=== PATIENT | female | born 1965 | race Caucasian/White ===

== ENCOUNTER 2019-12-14 08:34 | Inpatient (IN) ==
--- NOTE | 2019-11-14 14:08 | PAT Medication Instructions ---
Medication Instructions Date of Service November 14, 2019 Home Medications calcium carbonate-vitamin D3 [Calcium 600 + D(3)] 1 cap PO QAM ibuprofen [Advil] 400 mg PO Q6H PRN levothyroxine 112 mcg PO QAM multivitamin 1 tab PO QAM tramadol 50 mg PO TID PRN ASK your surgeon for instructions ibuprofen [Advil] 400 mg PO Q6H PRN DO NOT take the morning of surgery calcium carbonate-vitamin D3 [Calcium 600 + D(3)] 1 cap PO QAM multivitamin 1 tab PO QAM Take morning of surgery With a small sip of water, OTHERWISE NOTHING TO EAT OR DRINK AFTER MIDNIGHT: levothyroxine 112 mcg PO QAM tramadol 50 mg PO TID PRN (okay to take up to 4 hours prior to surgery if needed) Take evening before surgery tramadol 50 mg PO TID PRN (if needed) Other Notes If you have any questions please call us at [phone] or [phone] or [phone] or [phone]
--- NOTE | 2019-11-15 10:36 | Anesthesiology Consultation ---
Date of Service November 15, 2019 Assessment & Plan (1) Encounter for pre-operative examination: Per assessment on 11/14: Travel screen- Lives in [facility]. Works in [place]. Uses PPE, frequent hand washing, + social distancing. No known COVID-19 positive contacts or current COVID-19 related symptoms. Surgeon arranging preop COVID testing. Awaiting results. Chart Review Chart Review: Acceptable Risk for Surgery and Patient seen in Pre Admission Testing Teaching & Discussion Pre-Anesthesia Teaching/Discussion Notes: Instructed NPO after midnight before surgery,except medications with 15 cc of water. Medication instructions provided according to the PAT guidelines. History Surgery Operation Date: 12/14/19 08:40 Proposed Procedures p Left shoulder Tournier Resurfacing - Jordan Calderón DO s vs. Hemiarthroplasty vs. Total Shoulder Arthroplasty - Jordan Calderón DO Height/Weight Height: 5 ft 3 in Weight: 67.3 kg Allergies Allergy/AdvReac Type Severity Reaction Status Date / Time No Known Allergies Allergy Verified 11/10/19 10:52 Medications Home Medications Medication Instructions Recorded Confirmed Last Taken calcium carbonate-vitamin D3 1 cap PO QAM 11/10/19 11/10/19 Unknown [Calcium 600 + D(3)] ibuprofen [Advil] 400 mg PO Q6H PRN 11/10/19 11/10/19 Unknown levothyroxine 112 mcg PO QAM 11/10/19 11/10/19 Unknown multivitamin 1 tab PO QAM 11/10/19 11/10/19 Unknown tramadol 50 mg PO TID PRN 11/10/19 11/10/19 Unknown Past Medical History Medical History Cardiac murmur during 20+ years ago Chronic back pain Hypothyroidism hx graves s/p radiation Migraine Ruptured disc, cervical Temporomandibular joint disorder slight click (right side), no locking Exercise / Class Metabolic Activity II 4-5 Yardwork/Stairs/Walk up hill (walks several miles daily without chest pain/dyspnea) Past Surgical History Surgical History Fusion of spine LUMBAR H/O hand surgery LEFT History of arthroscopy LEFT HIP History of section X 3 History of colonoscopy History of esophagogastroduodenoscopy (EGD) History of hysterectomy Hx of hand surgery R/L THUMBS Past Anesthesia History No Hx of Anesthesia Complications and No Family Hx of Anesthesia Complications History of PONV No Hx of PONV and No Hx of Motion Sickness Social History Smoking Status: Former smoker Do You Dip or Chew Tobacco: No Smoking End Date: QUIT 03/2017 (tobacco use x 20 years) Hx Alcohol Use: Yes Alcohol type: beer and hard liquor alcohol intake frequency: holidays/special occasions only Hx Substance Use: No Review of Systems Patient denies chest pain, shortness of breath, fever, chills, cough, wheezing, palpitations. Physical Exam Vital Signs VITALS BP 112/70 P 57 (chronic bradycardia, asymptomatic) TEMP 98.4 SP02 97%RA RESP 16 PHYSICAL Full neck and c-spine range of motion. Full TMJ range of motion. TMD 3 finger breaths Mallampati Score 2 Dentition: intact, upper front bonding Lungs: clear throughout to auscultation Cardiac: regular rate and rhythm, no murmurs noted Spine: normal Carotid arteries: negative bruit Extremities: no edema Testing Laboratory Results 11/15/19 10:49 11/15/19 10:49 PT 10.4 Seconds (9.0-12.0) 11/15/19 10:49 INR 1.0 (0.9-1.1) 11/15/19 10:49 APTT 27.3 Seconds (21.0-31.0) 11/15/19 10:49 Hemoglobin A1c 4.8 % (4.5-5.6) 11/15/19 10:49 Urine Color Yellow 11/15/19 Unknown Urine Appearance Clear (Clear) 11/15/19 Unknown Urine pH 6.0 (4.5-7.5) 11/15/19 Unknown Ur Specific [place] 1.024 (1.000-1.030) 11/15/19 Unknown Urine Protein Negative (Negative) 11/15/19 Unknown Urine Glucose (UA) Negative (Negative) 11/15/19 Unknown Urine Ketones Negative (Negative) 11/15/19 Unknown Urine Nitrite Negative (Negative) 11/15/19 Unknown Ur Leukocyte Esterase 2+ (Negative) H 11/15/19 Unknown Urine WBC (Auto) 1-5 /hpf (0-5) 11/15/19 Unknown Urine RBC (Auto) 0-4 /hpf (0-4) 11/15/19 Unknown U Hyaline Cast (Auto) 0 /lpf (0-5) 11/15/19 Unknown U Epithel Cells (Auto) >30 /lpf (0-5) H 11/15/19 Unknown Urine Bacteria (Auto) Negative (Negative) 11/15/19 Unknown Blood Type O Positive 11/15/19 10:49 Antibody Screen NEGATIVE 11/15/19 10:49 Electrocardiogram Date: 11/15/19 SB at 47bpm. Chest X-Ray Date: 11/15/19 No acute cardiopulmonary findings. Mild to moderate S-shaped scoliosis of the thoracolumbar spine.
--- NOTE | 2019-11-15 11:19 | XRay Report ---
XR chest Pre-admission PA/Lat CLINICAL HISTORY: Preoperative evaluation. COMPARISON STUDY: No previous studies for comparison. FINDINGS: Lung volumes are normal. Lungs are clear. There is no pneumothorax or pleural effusion. Car diac size is normal. Mediastinal contours are normal. There is no evidence for pulmonary edema. Incid ental note is made of mild to moderate S-shaped scoliosis of the thoracolumbar spine. IMPRESSION: 1. No acute cardiopulmonary findings. 2. Mild to moderate S-shaped scoliosis of the thoracolumbar spine. ACT 112: Negative or not required by law. Electronically signed by: Tomás Seymour M.D. 11/15/2019 11:18 AM
[2019-11-15 12:22] LABS: Appearance Urine Clear (Clear); Bacteria Urine Automated Negative (Negative); Bilirubin Urine Negative (Negative); Blood Urine Negative (Negative); Cast Urine Automated 0 /lpf (0-5); Color Urine Yellow; Epithelial Cell Urine Auto >30 /lpf (0-5); Glucose Urine UA Negative (Negative); Ketones Urine Negative (Negative); Leukocyte Esterase Urine 2+ (Negative); Nitrite Urine Negative (Negative); Protein Urine Negative (Negative); RBC Urine Automated 0-4 /hpf (0-4); Specific Gravity Urine 1.024 (1.000-1.030); Urobilinogen Urine Negative (Negative)
[2019-11-15 12:28] LABS: Partial Thromboplastin Time 27.3 Seconds (21.0-31.0); Prothrombin Time 10.4 Seconds (9.0-12.0)
[2019-11-15 12:33] LABS: Estimated Average Glucose 91 mg/dl; Hemoglobin A1C 4.8 % (4.5-5.6)
[2019-11-15 12:54] LABS: Albumin Level 3.8 gm/dl (3.4-5.0); BUN Creatinine Ratio 38.9 (10-20); Basophils # (auto) 0.02 K/uL (0-0.2); Basophils % (auto) 0.3 %; Calcium 8.5 mg/dl (8.5-10.1); Creatinine Clr Calc Pharmacy 86.1 ml/min; Eosinophils # (auto) 0.11 K/uL (0-0.5); Eosinophils % (auto) 1.7 %; Est GFR (African American) 114.1; Est GFR (Non-African American) 98.5; Hematocrit (blood only) 42.8 % (37-47); Hemoglobin 14.4 g/dL (12.0-16.0); Immature Granulocytes # (auto) 0.01 K/uL (0.00-0.02); Immature Granulocytes % (auto) 0.2 %; Lymphocytes % (auto) 23.8 %; Mean Corpuscular Hemoglobin 33.1 pg (25-34); Mean Corpuscular Hgb Conc 33.6 g/dL (32-36); Mean Corpuscular Volume 98.4 fL (80-100); Mean Platelet Volume 11.4 fL (7.4-10.4); Monocytes % (auto) 7.9 %; Neutrophils # (auto) 4.16 K/uL (1.4-6.5); Neutrophils % (auto) 66.1 %; Platelet Count 239 K/uL (130-400); Potassium 4.3 mmol/L (3.5-5.1); RDW Coefficient of Variation 12.9 % (11.5-14.5); RDW Standard Deviation 46.7 fL (36.4-46.3); Red Blood Count 4.35 M/uL (4.2-5.4)
--- NOTE | 2019-11-16 05:47 | Electrocardiogram Report ---
Test Reason : Blood Pressure : / mmHG Vent. Rate : 047 BPM Atrial Rate : 047 BPM P-R Int : 172 ms QRS Dur : 106 ms QT Int : 440 ms P-R-T Axes : 048 003 022 degrees QTc Int : 389 ms Sinus bradycardia Otherwise normal ECG No previous ECGs available Confirmed by Lion Shook ([id number]) on 11/16/2019 5:47:13 AM Referred By: Jordan Calderón Confirmed By:Lion Shook
--- NOTE | 2019-11-18 09:13 | History & Physical Report ---
Date of Service November 18, 2019 date of surgery: 12/14/19 procedure: Left shoulder Tournier Resurfacing vs Total Shoulder Arthroplasty Assessment & Plan (1) Arthritis of left shoulder region: she has continued pain despite multiple cortisone injections, PO NSAIDs and Tylenol. she would like to proceed with scheduling of left shoulder resurfacing vs TSA at [facility]. The risks and benefits have been discussed including, but not limited to, risk of infection, nerve injury, stiffness, loss of motion, failure to improve, etc. Reasonable outcomes and options of treatment were discussed. An explanation of appropriate alternatives to the procedure that may be advantageous were discussed and their risks and benefits, as well as the risks and benefits of not proceeding with treatment. I offered to answer any additional inquiries concerning the treatment involved. All the patient's questions were answered. The patient is agreeable, understanding of the treatment plan and alternatives, and wishes to proceed with the treatment plan. History of Present Illness Chief Complaint: left shoulder pain Primary Care Provider: Daniel Coleman is a 54 year old female who complains of lef shoulder pain, presents for pre-op evaluation prior to a left shoulder resurfacing vs total shoulder replacement at [facility]. she complains of pain, decreased range of motion in her left shoudler. she states that the symptoms have been chronic and non-traumatic. Currently the patient states that the symptoms are moderate-severe and rates her current pain as 6/10. The pain is described as aching, sharp and throbbing. Prior NSAIDs include Aleve and IBU, as well as has used Tylenol for pain. she has had multiple cortisone in the shoulder over the past 6 or 7 years with only mild relief. Allergies Allergy/AdvReac Type Severity Reaction Status Date / Time No Known Allergies Allergy Verified 11/10/19 10:52 Home Medications Home Medications Medication Instructions Recorded Confirmed Type calcium carbonate-vitamin D3 1 cap PO QAM 11/10/19 11/10/19 History [Calcium 600 + D(3)] ibuprofen [Advil] 400 mg PO Q6H PRN 11/10/19 11/10/19 History levothyroxine 112 mcg PO QAM 11/10/19 11/10/19 History multivitamin 1 tab PO QAM 11/10/19 11/10/19 History tramadol 50 mg PO TID PRN 11/10/19 11/10/19 History Past Med/Surg History Medical History Cardiac murmur during 20+ years ago Chronic back pain Hypothyroidism hx graves s/p radiation Migraine Ruptured disc, cervical Temporomandibular joint disorder slight click (right side), no locking Surgical History Fusion of spine LUMBAR H/O hand surgery LEFT History of arthroscopy LEFT HIP History of section X 3 History of colonoscopy History of esophagogastroduodenoscopy (EGD) History of hysterectomy Hx of hand surgery R/L THUMBS Social History Smoking Status: Former smoker Smoking End Date: QUIT 03/2017 (tobacco use x 20 years); Second Hand Exposure: Yes (MOTHER SMOKED); Do You Dip or Chew Tobacco: No; Hx Alcohol Use: Yes Alcohol type: beer and hard liquor Hx Substance Use: No Preferred Language: Ivorian Communication Ability: Effective Mixer And Scaler Required: No Beliefs That Will Affect Care: None Current Living Situation: Spouse and Family Other Information That Helps Us Care for You: No Feels Safe at Home: Yes Safety Concerns: Feels Safe At This Time Review of Systems Review of Systems: All systems reviewed & are unremarkable except as noted in HPI & below Constitutional: no fever, no chills and no sweats Respiratory: no cough and no dyspnea Cardiovascular: no chest pain, no dyspnea and no orthopnea Gastrointestinal: no abdominal pain, no nausea and no vomiting Musculoskeletal: as per Subjective / HPI Physical Exam Physical Exam: HT: 5ft 3in WT: 67.3kg Constitutional: WD/WN, vitals as above no acute distress Respiratory: normal respiratory effort, lungs clear to auscultation no respiratory distress, no labored breathing and does not use accessory muscles Cardiovascular: RRR, no murmur, no edema Gastrointestinal (Abdomen): normal bowel sounds, soft, nontender, no hepatosplenomegaly Musculoskeletal: Left Shoulder Physical Exam there is no ecchymosis, warmth or erythema noted, positive crepitation with active ROM, she has tenderness anterior aspect shoulder, subacromial space and the AC joint. Belly press - Positive. Norris Positive. Cross Body Positive. Neer's - positive. Strength tests - External rotation 4/5, Supraspinatus 4/5 no atrophy Left shoulder ROM Active ROM - Flexion: 120 degrees, Ext Rot 90 Flex: 30 degrees, Abduction: 45 degrees, Factors: pain, Description: Pain with ROM. Passive ROM - Flexion 170 degrees, ER at 90 de degrees, pain with end range passive ROM. Neurovascular- Radial pulse palpable, radial/median/ulnar nerves intact. Elbow- full painless range of motion, no tenderness. Results & Data Results & Data ([facility]) Laboratory Results Laboratory Results WBC 6.30 K/uL (4.8-10.8) 11/15/19 10:49 RBC 4.35 M/uL (4.2-5.4) 11/15/19 10:49 Hgb 14.4 g/dL (12.0-16.0) 11/15/19 10:49 Hct 42.8 % (37-47) 11/15/19 10:49 MCV 98.4 fL (80-100) 11/15/19 10:49 MCH 33.1 pg (25-34) 11/15/19 10:49 MCHC 33.6 g/dL (32-36) 11/15/19 10:49 RDW Std Deviation 46.7 fL (36.4-46.3) H 11/15/19 10:49 RDW Coeff of Karime 12.9 % (11.5-14.5) 11/15/19 10:49 Plt Count 239 K/uL (130-400) 11/15/19 10:49 MPV 11.4 fL (7.4-10.4) H 11/15/19 10:49 Immature Gran % (Auto) 0.2 % 11/15/19 10:49 Neut % (Auto) 66.1 % 11/15/19 10:49 Lymph % (Auto) 23.8 % 11/15/19 10:49 [place] % (Auto) 7.9 % 11/15/19 10:49 Eos % (Auto) 1.7 % 11/15/19 10:49 Baso % (Auto) 0.3 % 11/15/19 10:49 Neut # (Auto) 4.16 K/uL (1.4-6.5) 11/15/19 10:49 Lymph # (Auto) 1.50 K/uL (1.2-3.4) 11/15/19 10:49 [place] # (Auto) 0.50 K/uL (0.11-0.59) 11/15/19 10:49 Eos # (Auto) 0.11 K/uL (0-0.5) 11/15/19 10:49 Baso # (Auto) 0.02 K/uL (0-0.2) 11/15/19 10:49 Immature Gran # (Auto) 0.01 K/uL (0.00-0.02) 11/15/19 10:49 PT 10.4 Seconds (9.0-12.0) 11/15/19 10:49 INR 1.0 (0.9-1.1) 11/15/19 10:49 APTT 27.3 Seconds (21.0-31.0) 11/15/19 10:49 PTT Ratio 1.0 11/15/19 10:49 Sodium 142 mmol/L (136-145) 11/15/19 10:49 Potassium 4.3 mmol/L (3.5-5.1) 11/15/19 10:49 Chloride 110 mmol/L (98-107) H 11/15/19 10:49 Carbon Dioxide 27 mmol/L (21-32) 11/15/19 10:49 Anion Gap 5.0 (3-11) 11/15/19 10:49 BUN 27 mg/dl (7-18) H 11/15/19 10:49 Creatinine 0.68 mg/dl (0.6-1.2) 11/15/19 10:49 Est Cr Clr Drug Dosing 86.1 ml/min 11/15/19 10:49 Est GFR ( Amer) 114.1 11/15/19 10:49 Est GFR (Non-Af Amer) 98.5 11/15/19 10:49 BUN/Creatinine Ratio 38.9 (10-20) H 11/15/19 10:49 Glucose 82 mg/dl (70-99) 11/15/19 10:49 Estimat Average Glucose 91 mg/dl 11/15/19 10:49 Hemoglobin A1c 4.8 % (4.5-5.6) 11/15/19 10:49 Calcium 8.5 mg/dl (8.5-10.1) 11/15/19 10:49 Albumin 3.8 gm/dl (3.4-5.0) 11/15/19 10:49 Urine Color Yellow 11/15/19 Unknown Urine Appearance Clear (Clear) 11/15/19 Unknown Urine pH 6.0 (4.5-7.5) 11/15/19 Unknown Ur Specific [place] 1.024 (1.000-1.030) 11/15/19 Unknown Urine Protein Negative (Negative) 11/15/19 Unknown Urine Glucose (UA) Negative (Negative) 11/15/19 Unknown Urine Ketones Negative (Negative) 11/15/19 Unknown Urine Blood Negative (Negative) 11/15/19 Unknown Urine Nitrite Negative (Negative) 11/15/19 Unknown Urine Bilirubin Negative (Negative) 11/15/19 Unknown Urine Urobilinogen Negative (Negative) 11/15/19 Unknown Ur Leukocyte Esterase 2+ (Negative) H 11/15/19 Unknown Urine WBC (Auto) 1-5 /hpf (0-5) 11/15/19 Unknown Urine RBC (Auto) 0-4 /hpf (0-4) 11/15/19 Unknown U Hyaline Cast (Auto) 0 /lpf (0-5) 11/15/19 Unknown U Epithel Cells (Auto) >30 /lpf (0-5) H 11/15/19 Unknown Urine Bacteria (Auto) Negative (Negative) 11/15/19 Unknown Blood Type O Positive 11/15/19 10:49 Antibody Screen NEGATIVE 11/15/19 10:49 Diagnostic Findings left shoulder 3 view x-ray showing djd of the glenohumeral joint with osteophyte formation and joint space narrowing, no acute bony pathology.
[~2019-12-14 08:34] MED LIST: ACETAMINOPHEN 500 MG TAB PO SCH; CEFAZOLIN 1000MG 1,000 MG/7.5 ML SYR IV SCH; CeleBREX 200 MG CAP PO SCH; FAMOTIDINE 20 MG TAB PO SCH; GABAPENTIN 900 MG DOSE PO SCH; LR 15ML/HR IV SCH; LR 500ML BOLUS, THEN 15ML/HR IV SCH; METOCLOPRAMIDE HCL 10 MG TABLET PO SCH; OXYCODONE HCL 10 MG TABCR (OXYCONTIN) PO SCH; ROPIVACAINE 0.5% 5 MG/ML 30 ML VIAL ONE; TRANEXAMIC ACID 1,000 MG **IV Intra-op IV SCH; TRANEXAMIC ACID 1,000 MG **IV Pre-op IV SCH
--- OUTSIDE RECORDS SUMMARY | 2019-12-14 08:38 | External Medical Summary | Continuity of Care Document ---
:1965 Author Name Darrell Dyer, Provider Address Unavailable Unavailable , Care Team Providers Name Role Phone Dk FLORES M.D., E. PNasrin Unavailable [email or web address] Assessments Assessed Problems:Lumbosacral radiculopathy at L5 Problems Lumbosacral radiculopathy at L5 (724.4) (M54.17) Allergies and Adverse Reactions Allergy history not documented Medications Medications not documented Procedures Procedures not documented Immunizations Immunizations not documented Plan of Treatment Planned Observations Planned Goals not documented Results No Known Results Results not documented Encounters Appointment; Michael Root III, M.D. 05-Nov-2017 15:15 Encounter Diagnosis: Problem not documented
[2019-12-14] MEDS ORDERED: MIDAZOLAM HCL 1 MG/ML 2ML VIAL ONE ×2 (09:21)
[2019-12-14] MEDS ORDERED: fentaNYL citrate 100 MCG/2 ML VIAL ONE (09:22)
[2019-12-14] MEDS ORDERED: DEXAMETHASONE SOD INJ 4 MG/ML VIAL ONE (09:22)
[2019-12-14] MEDS ORDERED: ONDANSETRON INJ 2 MG/ML 2 ML VIAL ONE (09:22)
[2019-12-14] MEDS ORDERED: LIDOCAINE HCL 2% 2 ML VIAL/AMP(20MG/ML) INFIL ONE (09:22)
[2019-12-14] MEDS ORDERED: PROPOFOL IV EMULSION 10 MG/ML 20 ML VIAL IV ONE (09:22)
[2019-12-14] MEDS ORDERED: LARYING-O-JET KIT (LTA) ONE (09:39)
--- NOTE | 2019-12-14 09:39 | History & Physical Bridge Note ---
Date of Service December 14, 2019 History & Physical Bridge Note I have examined the patient, reviewed the History & Physical and in the interval since the performance of the History & Physical I have noted the following changes of clinical significance: no changes noted
[2019-12-14] MEDS ORDERED: ATROPINE SULFATE 0.1 MG/ML 10ML SYR IV PRN (10:47)
[2019-12-14] MEDS ORDERED: ePHEDrine sulfate 50 MG/ML AMP IV PRN (10:47)
[2019-12-14] MEDS ORDERED: ONDANSETRON INJ 2 MG/ML 2 ML VIAL IV PRN ×2 (10:47→14:26)
[2019-12-14] MEDS ORDERED: fentaNYL citrate 100 MCG/2 ML VIAL IV PRN (10:47)
[2019-12-14] MEDS ORDERED: BACITRACIN INJ 50,000 UNIT VIAL ONE (11:24)
[2019-12-14] MEDS ORDERED: GLYCOPYRROLATE 0.2 MG/ML VIAL ONE (12:22)
--- NOTE | 2019-12-14 12:31 | Operative Report ---
Post Operative Report Pre & Post Diagnosis Operation Date: 12/14/19 11:20 Pre-Op Diagnosis: Osteoarthritis Left Shoulder Post-Op Diagnosis: Osteoarthritis Left Shoulder I identified the patient and participated in the time-out.: Yes Procedure Operation Date: 12/14/19 11:20 Actual Procedures p Left shoulder Tournier Resurfacing(Left size 43 x 15- Jordan Calderón DO Surgeon Jordan Calderón DO Curriculum Counselor Trung BUTT Estimated Blood Loss 10 Findings Consistent with Post-Op Diagnosis Patient presents with grade 4 DJD humeral head left shoulder spurs undergone arthroscopy time surgeon evidence of eburnated bone with osteophytes around the margin there is a small subchondral cystic change as well but articular cartilage was devoid on the humeral head the glenoid was in satisfactory alignment and position with satisfactory articular cartilage Specimens Bone and cartilage Drains Medium bore Hemovac Anesthesia Type General Regional Complications none Disposition Accompanied Patient To Recovery: No Disposition: Recovery Room Indications Patient presents ongoing planes of pain to the left shoulder no response to conservative management eluding intra-articular corticosteroid injections previous arthroscopy with chondroplasty physical therapy as well as Visco supplementation left shoulder patient is failed attempted conservative management presents today for shoulder resurfacing hemiarthroplasty Description of Procedure Initiation of general anesthesia the left shoulder region was socially prepped and draped in sterile fashion with surgery slightly deltopectoral interval incision made that dissection was carried out through subcutaneous tissues to the region of the deltoid interval the cephalic vein was carefully retracted lateralward with the deltoid muscle anterior aspect of the conjoined tendon was evaluated was gently retracted medialward the subscapularis was reflected off the humeral head and retracted back to the glenoid the glenoid was inspected articular cartilage satisfactory the humeral head that was had marginal osteophytes anterior-inferior posterior all which were removed it was sized to a size 43 x 15 gave anatomic fit and fill it was socially reverse reamer was used after placing a pin in the center of the humeral head reverse reamer reamed to bed bleeding bone three #5 FiberWire sutures were placed for later passage and repair of the subscapularis socially after trialing the humeral head excellent stability was noted both anterior posterior superior inferior the final component was socially brought in the field and press-fit into the Mota taper of the humeral head the wound was irrigated with copious muscle sterile saline solution once again subsequently the subscapularis repaired back to the footprint utilizing the #3 FiberWire's with a Scuderi stitch the wound was irrigated cups muscle sterile sinuses there is a mild amount of oozing no active bleeding was noted that there was a mild amount of oozing in the region of the inferior circumflex vessels FloSeal was placed bleeding was stopped a medium Hemovacs placed in the deep wound the deltopectoral was closed with #2-0 Vicryl subcu was closed with 3-0 Vicryl skin was running closed with a running subcu suture as well as skin glue sterile compressive dressings placed will shoulder immobilizer was placed patient taken recovery stable condition please note Trung BUTT was necessary prepping draping retraction wound closure defect subcu and skin was necessary for the case I attest to the content of the Intraoperative Record and any orders documented therein. Any exceptions are noted below.
[2019-12-14] MEDS ORDERED: FLOSEAL HEMOSTATIC MATRIX 5ML TOP ONE (12:36)
--- NOTE | 2019-12-14 13:31 | Anesthesiology Progress Note ---
Date of Service December 14, 2019 Anesthesia Post Procedure Vital Signs Vital Signs: Temp Pulse Pulse Resp BP Pulse Ox 12/14/19 13:25 60 14 134/76 96 12/14/19 13:15 58 L 14 123/82 95 12/14/19 13:05 66 12 134/78 99 12/14/19 12:56 97.5 F L 84 14 133/80 99 12/14/19 10:27 57 L 18 126/79 98 12/14/19 10:06 98.4 F 54 L 16 133/80 99 Transfer of Care Handoff Completed per policy Notes Mental Status: alert / awake / arousable and participated in evaluation Patient Amnestic to Procedure: Yes Nausea / Vomiting: adequately controlled Pain: adequately controlled Airway Patency, RR, SpO2: stable & adequate BP & HR: stable & adequate Hydration State: stable & adequate Anesthetic Complications: no major complications apparent and Pt Satisfied with anesthetic care
[2019-12-14] MEDS ORDERED: MAGNESIUM HYDROXIDE SUSP 30 ML UDC PO PRN (14:26)
[2019-12-14] MEDS ORDERED: HYDROmorphone INJ 0.5 MG/0.5 ML SYR IV PRN (14:26)
[2019-12-14] MEDS ORDERED: bisacodyL 10 MG SUPP PR PRN (14:26)
[2019-12-14] MEDS ORDERED: NALOXONE HCL 0.4 MG/1 ML VIAL/CARP IV PRN (14:26)
[2019-12-14] MEDS ORDERED: SODIUM CHLORIDE 0.9% 1000ML 1,000 ML IV SCH (14:26)
--- NOTE | 2019-12-14 14:45 | XRay Report ---
LEFT SHOULDER 2 VIEWS CLINICAL HISTORY: Postoperative examination. FINDINGS: 2 portable views of the left shoulder are obtained. A left shoulder arthroplasty is in near anatomic alignment. No fracture is seen. Soft tissue edema and subcutaneous gas are expected postope rative findings. The acromioclavicular joint is maintained. The visualized left lung parenchyma appea rs clear. IMPRESSION: Expected postoperative findings status post left shoulder arthroplasty. No acute fracture is seen. Electronically signed by: Vasile Meraz M.D. 12/14/2019 2:44 PM
[2019-12-14] MEDS: ACETAMINOPHEN 500 MG TAB PO SCH ×2 (16:43→23:07)
[2019-12-14] MEDS: CEFAZOLIN 1000MG 1,000 MG/7.5 ML SYR IV SCH (19:15)
[2019-12-14] MEDS: DOCUSATE SODIUM 100 MG CAP PO SCH (20:41)
[2019-12-14] MEDS ORDERED: SENNA 8.6 MG TAB PO SCH (21:00)
[2019-12-15] MEDS: CEFAZOLIN 1000MG 1,000 MG/7.5 ML SYR IV SCH (03:26)
[2019-12-15] MEDS: OXYCODONE HCL IR 5 MG TAB (IMMEDIATE RELEASE) PO PRN ×4 (03:26→12:03)
[2019-12-15] MEDS: ACETAMINOPHEN 500 MG TAB PO SCH (06:07)
[2019-12-15] MEDS ORDERED: LEVOTHYROXINE SODIUM 112 MCG TABLET PO SCH (06:30)
[2019-12-15] MEDS: DOCUSATE SODIUM 100 MG CAP PO SCH (07:18)
[2019-12-15 07:27] LABS: Basophils # (auto) 0.01 K/uL (0-0.2); Basophils % (auto) 0.1 %; Eosinophils # (auto) 0.09 K/uL (0-0.5); Eosinophils % (auto) 0.8 %; Hematocrit (blood only) 38.4 % (37-47); Hemoglobin 13.1 g/dL (12.0-16.0); Immature Granulocytes # (auto) 0.03 K/uL (0.00-0.02); Immature Granulocytes % (auto) 0.3 %; Lymphocytes # (auto) 2.03 K/uL (1.2-3.4); Lymphocytes % (auto) 17.6 %; Mean Corpuscular Hemoglobin 33.3 pg (25-34); Mean Corpuscular Hgb Conc 34.1 g/dL (32-36); Mean Corpuscular Volume 97.7 fL (80-100); Mean Platelet Volume 9.7 fL (7.4-10.4); Monocytes % (auto) 8.7 %; Neutrophils # (auto) 8.37 K/uL (1.4-6.5); Neutrophils % (auto) 72.5 %; Platelet Count 208 K/uL (130-400); RDW Coefficient of Variation 12.8 % (11.5-14.5); RDW Standard Deviation 45.8 fL (36.4-46.3); Red Blood Count 3.93 M/uL (4.2-5.4); White Blood Count 11.53 K/uL (4.8-10.8)
[2019-12-15 08:21] LABS: BUN Creatinine Ratio 21.7 (10-20); Calcium 8.7 mg/dl (8.5-10.1); Creatinine Clr Calc Pharmacy 77.8 ml/min; Est GFR (African American) 102.3; Est GFR (Non-African American) 88.3; Potassium 4.1 mmol/L (3.5-5.1)
[2019-12-15] MEDS ORDERED: MULTIVITAMIN TAB PO SCH (09:00)
[2019-12-15] MEDS ORDERED: ASPIRIN 81 MG ECTAB PO SCH (09:00)
--- NOTE | 2019-12-15 09:14 | Orthopedic Progress Note ---
Date of Service December 15, 2019 Assessment & Plan (1) Arthritis of left shoulder region: Postop day 1 status post left shoulder resurfacing of the humeral head PT/OT protocols. Nonweightbearing on the left upper extremity DVT prophylaxis-aspirin p.o. daily, SCDs Pain management as written. Discharge planning-plan for discharge to home today after PT/OT. Patient planning for outpatient physical therapy. Admission and Anticipated Discharge Date Admission Date: December 14, 2019 Subjective Patient sitting up in bed awake and alert. States she is having some soreness this morning in the left shoulder but is otherwise feeling fine. She states that her block wore off last night and is about completely done at this point. She said she had some residual numbness in her left thumb which now seems to have resolved. Denies any shortness of breath, chest pain, lightheadedness. Patient is hoping to go home today. Physical Exam Physical Exam: Dressings are clean, dry, and intact. Minimal swelling around the shoulder at this time. She has good range of motion of her left wrist and fingers with good sensation. Capillary refill is less than 2 seconds. Results & Data ([facility]) Vital Signs (Past 12 Hours) Vital Signs Temp Pulse Pulse Resp BP Pulse Ox 12/15/19 08:16 36.5 C 58 L 16 129/83 98 12/15/19 03:14 36.5 C 66 16 102/62 94 12/14/19 22:45 36.6 C 87 16 111/60 93 Laboratory Results Laboratory Results WBC 11.53 K/uL (4.8-10.8) H 12/15/19 07:08 RBC 3.93 M/uL (4.2-5.4) L 12/15/19 07:08 Hgb 13.1 g/dL (12.0-16.0) 12/15/19 07:08 Hct 38.4 % (37-47) 12/15/19 07:08 MCV 97.7 fL (80-100) 12/15/19 07:08 MCH 33.3 pg (25-34) 12/15/19 07:08 MCHC 34.1 g/dL (32-36) 12/15/19 07:08 RDW Std Deviation 45.8 fL (36.4-46.3) 12/15/19 07:08 RDW Coeff of Karime 12.8 % (11.5-14.5) 12/15/19 07:08 Plt Count 208 K/uL (130-400) 12/15/19 07:08 MPV 9.7 fL (7.4-10.4) 12/15/19 07:08 Immature Gran % (Auto) 0.3 % 12/15/19 07:08 Neut % (Auto) 72.5 % 12/15/19 07:08 Lymph % (Auto) 17.6 % 12/15/19 07:08 Holmes % (Auto) 8.7 % 12/15/19 07:08 Eos % (Auto) 0.8 % 12/15/19 07:08 Baso % (Auto) 0.1 % 12/15/19 07:08 Neut # (Auto) 8.37 K/uL (1.4-6.5) H 12/15/19 07:08 Lymph # (Auto) 2.03 K/uL (1.2-3.4) 12/15/19 07:08 Holmes # (Auto) 1.00 K/uL (0.11-0.59) H 12/15/19 07:08 Eos # (Auto) 0.09 K/uL (0-0.5) 12/15/19 07:08 Baso # (Auto) 0.01 K/uL (0-0.2) 12/15/19 07:08 Immature Gran # (Auto) 0.03 K/uL (0.00-0.02) H 12/15/19 07:08 PT 10.4 Seconds (9.0-12.0) 11/15/19 10:49 INR 1.0 (0.9-1.1) 11/15/19 10:49 APTT 27.3 Seconds (21.0-31.0) 11/15/19 10:49 PTT Ratio 1.0 11/15/19 10:49 Sodium 145 mmol/L (136-145) 12/15/19 07:08 Potassium 4.1 mmol/L (3.5-5.1) 12/15/19 07:08 Chloride 112 mmol/L (98-107) H 12/15/19 07:08 Carbon Dioxide 27 mmol/L (21-32) 12/15/19 07:08 Anion Gap 5.0 (3-11) 12/15/19 07:08 BUN 17 mg/dl (7-18) 12/15/19 07:08 Creatinine 0.76 mg/dl (0.6-1.2) 12/15/19 07:08 Est Cr Clr Drug Dosing 77.8 ml/min 12/15/19 07:08 Est GFR ( Amer) 102.3 12/15/19 07:08 Est GFR (Non-Af Amer) 88.3 12/15/19 07:08 BUN/Creatinine Ratio 21.7 (10-20) H 12/15/19 07:08 Glucose 89 mg/dl (70-99) 12/15/19 07:08 Estimat Average Glucose 91 mg/dl 11/15/19 10:49 Hemoglobin A1c 4.8 % (4.5-5.6) 11/15/19 10:49 Calcium 8.7 mg/dl (8.5-10.1) 12/15/19 07:08 Albumin 3.8 gm/dl (3.4-5.0) 11/15/19 10:49 Urine Color Yellow 11/15/19 Unknown Urine Appearance Clear (Clear) 11/15/19 Unknown Urine pH 6.0 (4.5-7.5) 11/15/19 Unknown Ur Specific [place] 1.024 (1.000-1.030) 11/15/19 Unknown Urine Protein Negative (Negative) 11/15/19 Unknown Urine Glucose (UA) Negative (Negative) 11/15/19 Unknown Urine Ketones Negative (Negative) 11/15/19 Unknown Urine Blood Negative (Negative) 11/15/19 Unknown Urine Nitrite Negative (Negative) 11/15/19 Unknown Urine Bilirubin Negative (Negative) 11/15/19 Unknown Urine Urobilinogen Negative (Negative) 11/15/19 Unknown Ur Leukocyte Esterase 2+ (Negative) H 11/15/19 Unknown Urine WBC (Auto) 1-5 /hpf (0-5) 11/15/19 Unknown Urine RBC (Auto) 0-4 /hpf (0-4) 11/15/19 Unknown U Hyaline Cast (Auto) 0 /lpf (0-5) 11/15/19 Unknown U Epithel Cells (Auto) >30 /lpf (0-5) H 11/15/19 Unknown Urine Bacteria (Auto) Negative (Negative) 11/15/19 Unknown Blood Type O Positive 11/15/19 10:49 Antibody Screen NEGATIVE 11/15/19 10:49
--- NOTE | 2019-12-21 16:03 | Discharge Summary ---
Date of Service December 21, 2019 Admission HPI Per Admitting Provider Virginia is a 54 year old female who complains of lef shoulder pain, presents for pre-op evaluation prior to a left shoulder resurfacing vs total shoulder replacement at [facility]. she complains of pain, decreased range of motion in her left shoudler. she states that the symptoms have been chronic and non-traumatic. Currently the patient states that the symptoms are moderate-severe and rates her current pain as 6/10. The pain is described as aching, sharp and throbbing. Prior NSAIDs include Aleve and IBU, as well as has used Tylenol for pain. she has had multiple cortisone in the shoulder over the past 6 or 7 years with only mild relief. Admission Exam Per Admitting Provider Physical Exam: HT: 5ft 3in WT: 67.3kg Constitutional: WD/WN, vitals as above no acute distress Respiratory: normal respiratory effort, lungs clear to auscultation no respiratory distress, no labored breathing and does not use accessory muscles Cardiovascular: RRR, no murmur, no edema Gastrointestinal (Abdomen): normal bowel sounds, soft, nontender, no hepatosplenomegaly Musculoskeletal: Left Shoulder Physical Exam there is no ecchymosis, warmth or erythema noted, positive crepitation with active ROM, she has tenderness anterior aspect shoulder, subacromial space and the AC joint. Belly press - Positive. Norris Positive. Cross Body Positive. Neer's - positive. Strength tests - External rotation 4/5, Supraspinatus 4/5 no atrophy Left shoulder ROM Active ROM - Flexion: 120 degrees, Ext Rot 90 Flex: 30 degrees, Abduction: 45 degrees, Factors: pain, Description: Pain with ROM. Passive ROM - Flexion 170 degrees, ER at 90 de degrees, pain with end range passive ROM. Neurovascular- Radial pulse palpable, radial/median/ulnar nerves intact. Elbow- full painless range of motion, no tenderness. Principal Diagnosis Left Shoulder Djd Discharge Exam [facility] [address] Orthopedic Progress Note Signed Patient: VIRGINIA PERALTA Date: 12/14/19 MR#: [id number] Phy: Jordan Calderón D.O. Acct ID:[id number] Phy: Daniel Abernathy M.D. Date: 1965Fa Phy: Age: 54Location: 3W Sex: F Room/Bed: [facility] cc: ~ *NOTICE TO RECEIVING [employer]EN PARTY/AGENCY This information is strictly Confidential and protected under [place] law. [place] law prohibits you from making any further disclosure of this information unless further disclosure is expressly permitted by the written consent of the person to whom it pertains or is authorized by law. A general authorization for the release of medical or other information is not sufficient for this purpose. Hospital accepts no responsibility if the information is made available to any other person, INCLUDING THE PATIENT. Date of Service December 15, 2019 Assessment & Plan (1) Arthritis of left shoulder region: Postop day 1 status post left shoulder resurfacing of the humeral head PT/OT protocols. Nonweightbearing on the left upper extremity DVT prophylaxis-aspirin p.o. daily, SCDs Pain management as written. Discharge planning-plan for discharge to home today after PT/OT. Patient planning for outpatient physical therapy. Admission and Anticipated Discharge Date Admission Date: December 14, 2019 Subjective Patient sitting up in bed awake and alert. States she is having some soreness this morning in the left shoulder but is otherwise feeling fine. She states that her block wore off last night and is about completely done at this point. She said she had some residual numbness in her left thumb which now seems to have resolved. Denies any shortness of breath, chest pain, lightheadedness. Patient is hoping to go home today. Physical Exam Physical Exam: Dressings are clean, dry, and intact. Minimal swelling around the shoulder at this time. She has good range of motion of her left wrist and fingers with good sensation. Capillary refill is less than 2 seconds. Results & Data ([facility]) Vital Signs (Past 12 Hours) Vital Signs Temp Pulse Pulse Resp BP Pulse Ox 12/15/19 08:16 36.5 C 58 L 16 129/83 98 12/15/19 03:14 36.5 C 66 16 102/62 94 12/14/19 22:45 36.6 C 87 16 111/60 93 Laboratory Results Laboratory Results WBC 11.53 K/uL (4.8-10.8) H 12/15/19 07:08 RBC 3.93 M/uL (4.2-5.4) L 12/15/19 07:08 Hgb 13.1 g/dL (12.0-16.0) 12/15/19 07:08 Discharge Data Allergies Allergy/AdvReac Type Severity Reaction Status Date / Time No Known Allergies Allergy Verified 12/14/19 09:25 Consultations 12/14/19 14:26 Consult Case Management - Discharge Planning Routine Procedures Performed Operation Date: 12/14/19 11:20 Actual Procedures p Left shoulder Tournier Resurfacing(Left) - Jordan Calderón DO Ordered Studies 12/14/19 05:00 US - OR guided needle placemen Routine Hospital Course (1) Arthritis of left shoulder region: Patient was admitted on the above-noted date and had the above-noted surgery performed of which she tolerated well. Her first postoperative day, she was sitting up awake and alert in her bed. She was having some soreness in the shoulder but is otherwise feeling fine. She states that her nerve block had worn off during the night and that she was still experiencing some residual numbness in her left thumb which is resolving fairly quickly. No other complaints. Dressings were clean, dry, and intact. She had good range of motion of her left wrist, and fingers with good sensation. Cap refill is less than 2 seconds. Vital signs were stable and hemoglobin was 13.1. She was started on PT and OT protocols of which she progressed well. She was remaining stable and was felt she be discharged home. Total Time Total Time Spent Total Time Spent (In Minutes): 5 Discharge Plan Discharge Items Patient Disposition: Home - Self-Care Reason For Visit: Osteoarthritis Shoulder Left Discharge Diagnosis: Osteoarthritis Left Shoulder Activity: Per Instructions section Weightbearing: Left non-weightbearing Non-emergency contact: Surgeon Call non-emergency contact if: your pain is not controlled, your temperature is above 101.5, your wound has increased redness and your wound has increased drainage Follow-up/Referrals: Daniel Abernathy M.D. [Primary Care Provider] - Diet: Regular Addtl Attending Provider Instructions: YOU MAY RESUME YOUR ESTRADIOL IN 2 WEEKS. ACTIVITY RECOMMENDATIONS: SELF CARE INSTRUCTIONS AFTER SHOULDER RESURFACING A. You may do daily exercises as taught in physical therapy while in hospital. No lifting with the operative arm. Please schedule your outpatient physical therapy appointment to begin within 2-3 days after leaving the hospital. Specific restrictions will be written on your physical therapy prescription that is provided to you. B. You are to wear your sling/immobilizer at all times EXCEPT when performing your daily exercises, participating in physical therapy and for hygiene purposes. C. You may perform dry, daily dressing changes. Please keep your incision covered. You may shower 48 hours after surgery. Do not apply soap or any ointment/lotions directly over incision. Do not soak incision in bath tub/swimming pool. D. You may use ice as needed to operative shoulder. SPECIAL CARE INSTRUCTIONS: MEDICATION INSTRUCTIONS: *It is recommended you take Aspirin 325mg daily for four weeks post-op. VERY IMPORTANT TO READ AND REVIEW A. There are a few signs you need to watch for after you are home. Call [facility] at [phone] if you experience any of the followin. Increased severe shoulder pain. Some pain is expected especially when you exercise. 2. Increased swelling in you shoulder or arm; pain or swelling in either upper extremity. 3. Any fluid drainage from the incision. 4. Shortness of breath or chest pain. B. Please call [facility] at [phone] if you have any questions or concerns about your operation or recovery. C. Call your physician if: 1. Temperature is greater than 101 degrees (F). 2. Pain is not relieved by prescribed pain medications. 3. Increase drainage or redness from incision. 4. Unanswered questions or concerns. FOLLOW UP VISIT: Please call [facility] at [phone] to schedule a follow up appointment with Dr. Calderón or his PA in 10-14 days from your surgery date. Stand-Alone Forms: [facility] Medications and DC Order Prescriptions: New aspirin 81 mg Tablet,Delayed Release (Dr/Ec) 81 mg PO DAILY 30 Days Qty: 30 RF: 0 acetaminophen 500 mg Tablet 1,000 mg PO Q8 14 Days Qty: 84 RF: 0 polyethylene glycol 3350 [Miralax] 17 gram powder in packet 17 g PO DAILY PRN (Reason: constipation) Qty: 5 RF: 0 oxycodone 5 mg Tablet 5 mg PO Q4H MDD 6 PRN (Reason: pain) Qty: 30 RF: 0 Continued multivitamin Tablet 1 tab PO QAM RF: 0 Calcium 600 + D(3) 600 mg calcium- 200 unit Capsule 1 cap PO QAM RF: 0 levothyroxine 112 mcg Capsule 112 mcg PO QAM RF: 0 Discontinued tramadol 50 mg Tablet 50 mg PO TID PRN (Reason: Pain) RF: 0 ibuprofen [Advil] 200 mg Tablet 400 mg PO Q6H PRN (Reason: Pain) RF: 0 estradiol tablet 1 mg PO DAILY RF: 0 Discharge Orders: Discharge Order (Routine); Ordered 12/15/19 Ordered By: Trung Foley Admission Data Admit Date/Time: 12/14/19 13:10 Attending Provider: Jordan Calderón Admit Provider: Jordan Calderón Primary Care Provider: Daniel Abernathy Other Interventions: Discharge Summary Assessment (RN) Last Done: 12/15/19 09:37
== END 2019-12-15 13:00 | disposition home or self-care (01) | DRG 483 ==
LOC: ASU 08:34 → 3W 13:10